=== PATIENT | male | born 1995 | race Caucasian/White ===

== ENCOUNTER 2019-11-12 05:35 | Emergency (ER) | payer MEDICAID ==
[~2019-11-12] VITALS: Ht 170.2 cm; Wt 63.5 kg
[2019-11-12 05:37] VITALS: BP 136/72; Ht 170.2 cm; Wt 63.5 kg
== END 2019-11-12 07:44 | disposition other institution (70) ==
LOC: ED 05:35
DX: S01.21XA Laceration without foreign body of nose, initial encounter (principal); S61.210A Laceration without foreign body of right index finger without damage to nail, initial encounter; Y08.89XA Assault by other specified means, initial encounter; Y93.89 Activity, other specified; Y92.89 Other specified places as the place of occurrence of the external cause; Y99.8 Other external cause status

== ENCOUNTER 2019-11-12 05:35 | Emergency (ER) | payer OTHER | END 2019-11-12 07:44 | disposition other institution (70) | LOC: ED 05:35 | DX: Z02.89 Encounter for other administrative examinations (principal) ==